=== PATIENT | female | born 1960 | race Caucasian/White ===

== ENCOUNTER → 2019-01-11 11:34 | Outpatient (CLI) | payer OTHER, SELFPAY ==
[2019-01-11 16:07] LABS: Absolute Lymphocyte Count 2.45 X10^3/uL (0.83-4.51); Absolute Neutrophil Count 3.5 X10^3/uL (2.0-7.7); Basophil# 0.08 X10^3/uL; Basophil% 1.2 % (0-1); Eosinophil# 0.33 X10^3/uL; Eosinophils% 4.8 % (0-5); Hematocrit 42.9 % (37-47); Hemoglobin 13.9 g/dL (12.0-15.0); Lymphocyte # 2.45 X10^3/ul (4.0); Lymphocyte % 35.3 % (19-41); Mean Corp Hgb Conc 32.4 g/dL (32-36); Mean Corpuscular Hgb 29.3 pg (27.0-32.0); Mean Corpuscular Volume 90.3 fL (81-99); Mean Platelet Vol. 10.3 fl (6.2-12.0); Monocyte% 8.6 % (0-10); NRBC Flagged by Analyzer 0 % (0-5); Neutrophil # 3.45 X10^3/uL (2.7-7.7); Neutrophil % 49.7 % (47-70); Platelet Count 270 K/mm3 (150-450); RBC Distribution Width CV 12.3 % (11.6-14.6); RBC Distribution Width SD 40.4 fl (35.1-43.9); Red Blood Count 4.75 M/mm3 (4.2-5.4); White Blood Count 6.9 K/mm3 (4.4-11.0)
[2019-01-11 16:44] LABS: Vitamin B12 415 pg/mL (211-911); Vitamin D,25 Hydroxy 15.9 ng/mL (29.95-100.01)
[2019-01-11 16:45] LABS: Anion Gap 7 (5-15); BUN 18 mg/dL (7-18); BUN/Creat Ratio 24.1 RATIO (10-20); Calcium,Total 8.9 mg/dL (8.5-10.1); Chloride 109 mmol/L (98-107); Creatinine, Serum 0.75 mg/dL (0.55-1.02); EST Glomerular Filtration Rate 85 mL/min (>60); Est Glom Filt Rate - Afr Amer 102 mL/min (>60); Glucose 95 mg/dL (74-106); Potassium 3.9 mmol/L (3.5-5.1); Sodium Level 140 mmol/L (136-145); T4 Free Direct 1.96 ng/dL (0.76-1.46); Thyroid Stim Hormone (TSH) 0.03 uIU/mL (0.358-3.74)
== END ==
LOC: BFHLAB 11:38
PROVIDERS: Family Provider Family Medicine; PCP Family Medicine; Visit Provider Family Medicine
DX: E03.9 Hypothyroidism, unspecified (principal); F32.1 Major depressive disorder, single episode, moderate; R53.83 Other fatigue
CPT/HCPCS: 36415; 80048; 82306; 82607; 84439; 84443; 85025

== ENCOUNTER → 2019-05-22 08:46 | Outpatient (CLI) | payer OTHER, SELFPAY ==
[2019-05-22 12:30] LABS: Vitamin D,25 Hydroxy 48.4 ng/mL
[2019-05-22 12:39] LABS: T4 Free Direct 0.78 ng/dL (0.76-1.46)
== END ==
PROVIDERS: Family Provider Family Medicine; PCP Family Medicine; Visit Provider Family Medicine
DX: E03.9 Hypothyroidism, unspecified (principal); E55.9 Vitamin D deficiency, unspecified
CPT/HCPCS: 36415; 82306; 84439; 84443

== ENCOUNTER → 2020-01-15 10:35 | Outpatient (CLI) | payer OTHER, SELFPAY ==
[2020-01-15 13:53] LABS: Thyroid Stim Hormone (TSH) 1.92 uIU/mL (0.358-3.74)
== END ==
PROVIDERS: PCP Family Medicine; Visit Provider Family Medicine
DX: E03.9 Hypothyroidism, unspecified (principal)
CPT/HCPCS: 36415; 84443

== ENCOUNTER → 2020-11-06 16:01 | Outpatient (CLI) | payer OTHER, SELFPAY ==
--- NOTE | 2020-11-06 16:05 | RAD_ITS ---
STUDY: X-RAY CHEST REASON FOR EXAM: Female, 60 years old. BACK PAIN TECHNIQUE: PA and lateral views of the chest. COMPARISON: None. FINDINGS: The lungs are clear and expanded. There is no demonstrated pleural abnormality. Normal size heart. Normal mediastinum and marcos. Normal visualized pulmonary arteries. Normal visualized aortic arch and descending thoracic aorta. Normal visualized thoracic spine. Normal visualized ribs, clavicles, and shoulders. There is no demonstrated abnormality of the visualized soft tissue structures of the upper abdomen. RAD/Chest PA and Lateral IMPRESSION: Normal x-ray examination of the chest. Electronically Signed: Karlo Márquez MD at 7:39 EDT Tel , Service support ,
== END ==
PROVIDERS: PCP Family Medicine; Referring Provider Family Medicine; Visit Provider Family Medicine
DX: M54.9 Dorsalgia, unspecified (principal)
CPT/HCPCS: 71046

== ENCOUNTER → 2020-11-20 07:41 | Outpatient (CLI) | payer OTHER, SELFPAY ==
--- NOTE | 2020-11-20 07:40 | BI_ITS ---
MAMMOGRAPHY - BILATERAL SCREENING REASON FOR EXAM: Female, 60 years old. Routine annual screening examination. PERTINENT HISTORY: Non-contributory. TECHNIQUE: Digital bilateral breast aaron (3D mammographic acquisition) in the CC and MLO projections. 2-D mediolateral oblique (MLO) and craniocaudad (CC) views of both breasts were obtained. CAD: Full Field Digital Mammography with Computer Added Detection was performed. COMPARISON: Comparison is made with prior examination dated 04/25/2012. FINDINGS: Breast Composition: The breasts are heterogeneously dense, which may obscure small masses. There are no dominant masses or suspicious calcifications. Stable 4.9 mm well-defined nodule in the deep upper lateral aspect of the left breast most likely representing a small lymph node. Stable small benign appearing bilateral axillary lymph nodes. No other significant abnormalities are identified. There has been no significant change since the prior study. BI/SCRN MAMM (CAD)W/AARON BILAT IMPRESSION: Stable bilateral screening mammogram. Yearly follow-up mammogram recommended. (A) ASSESSMENT CATEGORY: BIRADS Category 2: Benign. A letter regarding these results will be sent to the patient by the facility within 30 days. Approximately 10% of breast cancers are not detected by mammography. A normal mammogram should not delay biopsy of a clinically suspicious abnormality. [id number] Electronically Signed: Rahat Blanca MD at 9:12 EDT , Service support ,
== END ==
PROVIDERS: PCP Family Medicine; Referring Provider Family Medicine; Visit Provider Family Medicine
DX: Z12.31 Encounter for screening mammogram for malignant neoplasm of breast (principal)
CPT/HCPCS: 77063; 77067

== ENCOUNTER → 2022-09-13 | Outpatient (CLI) | payer OTHER, SELFPAY ==
[2022-09-13 12:36] LABS: Absolute Lymphocyte Count 2.04 X10^3/uL (0.83-4.51); Absolute Neutrophil Count 3.7 X10^3/uL (2.0-7.7); Basophil# 0.11 X10^3/uL; Basophil% 1.6 % (0-1); Eosinophil# 0.36 X10^3/uL; Eosinophils% 5.4 % (0-5); Hematocrit 40.9 % (37-47); Hemoglobin 13.3 g/dL (12.0-15.0); Lymphocyte # 2.04 X10^3/ul (0.83-4.51); Lymphocyte % 30.4 % (19-41); Mean Corp Hgb Conc 32.5 g/dL (32-36); Mean Corpuscular Hgb 29.9 pg (27.0-32.0); Mean Corpuscular Volume 91.9 fL (81-99); Mean Platelet Vol. 10.4 fl (6.2-12.0); Monocyte# 0.49 X10^3/uL; Monocyte% 7.3 % (0-10); NRBC Flagged by Analyzer 0 % (0-5); Neutrophil # 3.67 X10^3/uL (2.7-7.7); Neutrophil % 54.9 % (47-70); Platelet Count 254 K/mm3 (150-450); RBC Distribution Width CV 12.3 % (11.6-14.6); RBC Distribution Width SD 41.3 fl (35.1-43.9); Red Blood Count 4.45 M/mm3 (4.2-5.4); White Blood Count 6.7 K/mm3 (4.4-11.0)
[2022-09-13 12:56] LABS: AST(SGOT) 21 U/L (15-37); Alanine Aminotransfer ALT/SGPT 26 U/L (13-56); Albumin, Serum 3.8 g/dL (3.2-5.0); Alkaline Phosphatase 50 U/L (45-117); Anion Gap 5 (5-15); BUN 15 mg/dL (7-18); BUN/Creat Ratio 17.9 RATIO (10-20); Calcium,Total 9.2 mg/dL (8.5-10.1); Chloride 109 mmol/L (98-107); Cholesterol 217 mg/dL (200); Creatinine, Serum 0.84 mg/dL (0.55-1.02); EST Glomerular Filtration Rate 73 mL/min (>60); Est Glom Filt Rate - Afr Amer 89 mL/min (>60); Globulin 3.8 g/dL (2.2-4.2); Glucose 98 mg/dL (74-106); High Density Lipoprotein 57 mg/dL; Protein, Total 7.6 g/dL (6.4-8.2); Sodium Level 142 mmol/L (136-145); T4 Free Direct 1.48 ng/dL (0.76-1.46); Thyroid Stim Hormone (TSH) 2.86 uIU/mL (0.358-3.74); Triglycerides 90 mg/dL; Very Low Density Lipoprotein 18 mg/dL (5-40)
[2022-09-13 12:59] LABS: Vitamin B12 327 pg/mL (211-911); Vitamin D,25 Hydroxy 34.7 ng/mL
== END | disposition home or self-care (01) ==
LOC: BFHLAB 09:02
PROVIDERS: PCP Family Medicine; Visit Provider Nurse Practitioner Family
DX: Z00.00 Encounter for general adult medical examination without abnormal findings (principal); E78.5 Hyperlipidemia, unspecified; R53.83 Other fatigue
CPT/HCPCS: 36415; 80053; 80061; 82306; 82607; 84439; 84443; 85025

== ENCOUNTER 2023-03-21 17:17 | Emergency (ER) | payer OTHER, SELFPAY ==
[2023-03-21 17:18] VITALS: BP 143/76; PULSE 72; RESP 18; TEMP 36.2; O2SAT 98; BMI 31.0
--- NOTE | 2023-03-21 19:57 | CT_ITS ---
STUDY: CT BRAIN WITHOUT CONTRAST REASON FOR EXAM: Female, 63 years old. head injury RADIATION DOSAGE (If Supplied By Facility): CTDIvol = ( 44.99 ) mGy, DLP = ( 1228.58 ) mGycm TECHNIQUE: Transaxial CT imaging of the brain was performed without administration of intravenous contrast material. Individualized dose optimization techniques were used for this CT. COMPARISON: No relevant priors. FINDINGS: Normal soft tissue structures. Normal calvarium. There is mild cerebral atrophy with widening of the extra-axial spaces and ventricular dilatation. There are areas of decreased attenuation within the white matter tracts of the supratentorial brain, consistent with microvascular disease changes. There are small punctate calcifications of the basal ganglia which are seen in the aging brain as a normal variant. Normal brainstem. Normal cerebellum. There is no intracranial hemorrhage. There are no findings of an acute ischemic infarction. Normal visualized paranasal sinuses. CT/Brain/Head without Contrast IMPRESSION: Chronic involutional changes of the brain. Electronically Signed: Karlo Márquez MD at 20:50 EST ,
--- NOTE | 2023-03-21 19:57 | CT_ITS ---
STUDY: CT CERVICAL SPINE WITHOUT CONTRAST REASON FOR EXAM: Female, 63 years old. fall RADIATION DOSAGE (If Supplied By Facility): CTDIvol = ( 22.28 ) mGy, DLP = ( 1228.58 ) mGycm TECHNIQUE: High resolution transaxial imaging was performed without contrast material. Sagittal and coronal images were reconstructed. Individualized dose optimization techniques were used for this CT. COMPARISON: None FINDINGS: Normal craniovertebral junction. There are degenerative changes of the anterior atlantoaxial articulation. Normal odontoid process. There is reversal of the normal cervical lordosis. Normal vertebral bodies and posterior osseous elements. C2-3: Mild bilateral facet hypertrophy with ankylosis of facet joints produces mild bilateral neural foraminal stenosis. No central spinal stenosis. C3-4: Moderate right facet hypertrophy and right uncovertebral hypertrophy produces a moderate right neural foraminal stenosis. 2 mm of anterolisthesis of C3 on C4 with no central spinal stenosis. C4-5: Moderate bilateral facet hypertrophy produces mild bilateral neural foraminal stenosis. 2 mm of anterolisthesis of C4 on C5 with no central spinal stenosis. C5-6: Moderate bilateral facet hypertrophy produces mild bilateral neural foraminal stenosis. No central spinal stenosis. C6-7: Mild bilateral facet hypertrophy produces mild bilateral neural foraminal stenosis. No central spinal stenosis. C7-T1: Normal endplates. Normal disc height and morphology. Normal central canal and intervertebral neuroforamina. Normal visualized soft tissue structures. CT/Spine Cervical without Contras IMPRESSION: No acute fracture or subluxation. Degenerative disc disease with reversal normal lordotic curvature. Electronically Signed: Karlo Márquez MD at 20:56 EST ,
--- NOTE | 2023-03-21 20:02 | EX.ED.DYSGE1 ---
HPI <CHAD Sousa - Last Filed: 03/21/23 20:56> History of Present Illness Chief Complaint: Head Injury Narrative Narrative: Patient is a 63-year-old female with no significant medical history who presents to the emergency department after having a mechanical fall by tripping over her dog leash, landing on the concrete on the back of her head. Patient denies any LOC however states she was dazed. Per the , patient was awake however was slow to respond. Patient did lay for several minutes until she was able to get up. Patient's mostly complained of a headache, as well as left-sided rib pain. Patient denies any nausea or vomiting. Patient does have bleeding on the back of her scalp. PFSH <CHAD Sousa - Last Filed: 03/21/23 20:56> PFSH Allergy/AdvReac Type Severity Reaction Status Date / Time No Known Allergies Allergy Verified 03/21/23 17:18 ROS <CHAD Sousa - Last Filed: 03/21/23 20:56> ROS ED ROS Narrative Constitutional: Negative for fever, chills, weight loss, weakness Eyes: Negative for vision loss, vision change, double vision ENT: Negative for any sore throat, ear pain, congestion Cardiovascular: Negative for any chest pain, tightness, palpitations Respiratory: Negative for any cough, sputum production, hemoptysis, dyspnea, dyspnea on exertion, orthopnea Gastrointestinal: Negative for any abdominal pain, nausea, vomiting, diarrhea, constipation, blood in stool, blood in vomit : Negative for any urinary frequency, dysuria, retention, blood in urine Muscle skeletal: Negative for any myalgias, arthralgias, neck pain, back pain. Positive for left rib pain Neurological: Negative for any syncope, paresthesias, dizziness. Positive for headache Skin: Negative for any rashes, lumps, itching, abrasions, lacerations Psychiatric: Negative for any depression, anxiety, stress, suicidal ideation, homicidal ideation Hematologic: Negative for any easy bruising, excessive bruising, easy bleeding Allergies: Negative for any eczema, hives, rash EXAM <CHAD Sousa - Last Filed: 03/21/23 20:56> Physical Exam Narrative Exam Narrative: Vital signs reviewed. HEET: Head normocephalic atraumatic, TMs clear bilaterally. Posterior pharynx is clear, moist mucous membranes. Nares clear bilaterally. Pupils are equal round reactive to light, negative for any hemotympanum, septal hematoma. Patient does have edema to the occiput, 3 cm vertical laceration of the scalp. Neck: Supple with no lymphadenopathy or tenderness. No signs of meningismus. Cardiac: Regular rate and rhythm no murmurs gallops or rubs, equal peripheral pulses bilaterally. Respiratory: Lungs clear to auscultation bilaterally. Left-sided anterior, lateral chest wall tenderness. No crepitus noted. Abdomen: Soft, nontender, nondistended. No abdominal bruit or pulsatile masses. No hepatosplenomegaly Extremities: No peripheral edema, no signs of gross trauma or deformity. Active full range of motion of all extremities. Neuro: Cranial nerves II through XII intact, no focal neurological deficits. Skin: Clean dry and intact with no rash, purpura, petechiae, vesicles or pustules. Backs/flank: No CVA tenderness, no midline spinal tenderness, no deformity. Psych: Normal mood and affect. No SI, HI or acute psychosis. Const Vital Signs: 03/21/23 17:18 Temperature 97.2 F L Temperature Source Temporal Pulse Rate 72 Respiratory Rate 18 Blood Pressure 143/76 H Blood Pressure Mean 98 Pulse Ox 98 Oxygen Delivery Method Room Air Positive well nourished and well developed General Appearance ED: well developed <Dr. Mick Perkins MD - Last Filed: 03/21/23 21:29> Physical Exam Const Vital Signs: 03/21/23 17:18 Temperature 97.2 F L Temperature Source Temporal Pulse Rate 72 Respiratory Rate 18 Blood Pressure 143/76 H Blood Pressure Mean 98 Pulse Ox 98 Oxygen Delivery Method Room Air MDM <CHAD Sousa - Last Filed: 03/21/23 20:56> MDM Radiography Diagnostic Testing: Clinical Impression(s) from Imaging Studies Brain CT 03/21/23 19:57 IMPRESSION: Chronic involutional changes of the brain. Electronically Signed: Karlo Márquez MD at 20:50 EST , Cervical Spine CT 03/21/23 19:57 IMPRESSION: No acute fracture or subluxation. Degenerative disc disease with reversal normal lordotic curvature. Electronically Signed: Karlo Márquez MD at 20:56 EST Reading Location ID and State: [id number] / [employer] Tel , Service support , Ribs w/Chest X-Ray 03/21/23 20:16 IMPRESSION: RIBS: Normal x-ray examination of the ribs. CHEST: Normal x-ray examination of the chest. Electronically Signed: Karlo Márquez MD at 21:04 EST , Treatment and Re-Evaluation :: Patient appears to be in no obvious distress, vital signs are stable, presents to the emergency department with a mechanical fall, head injury. Differential diagnosis includes concussion, skull fracture, intracranial bleeding, concussion, cervical strain, left rib fracture. Secondary to the patient's HPI, the mechanical fall, the feeling of stunned, patient received a CT scan of the Brown, cervical spine, x-rays of the left rib series. Up-to-date on tetanus vaccination today. Patient will require payton to the occiput of the scalp lacerations that is 3 [address] in length. Patient CT scan of the brain, cervical spine were grossly unremarkable. Patient's chest x-ray as well as left rib x-ray was unremarkable. No acute fracture. Patient's wound was 3 cm in length, I was able to irrigate copiously with 200 cc normal saline. Patient did refuse her tetanus vaccination. I was able to place 6 payton, edges approximated nicely, patient will these removed in 7 days. Patient will take Tylenol, ibuprofen. She was given concussion education, reasons to return such as altered mental status, nausea, vomiting, fever or chills. Patient stable for discharge. <Dr. Mick Perkins MD - Last Filed: 03/21/23 21:29> [facility] Narrative Medical decision making narrative: I have personally performed a face to face assessment of the patient and have reviewed the ROSETTA Note. I performed a substantive portion of the visit including all aspects of the following. My bone findings include: History is 63-year-old female tripped over her dog leash hit the back of her head. Causing a laceration. No LOC. Mild neck and rib discomfort. Exam is [61-year-old female vital signs stable afebrile. HEENT exam pupils round reactive light. Extra motions are intact. Face atraumatic. She has a 2 inch laceration posterior scalp. It is already been stapled by my nurse practitioner. No significant hematoma. Proper hemostasis and wound closure is obtained. Neck paracervical soft tissue tenderness. Spine nontender. Trachea midline. Lungs clear to auscultation. Ribs mildly tender. No crepitance or subcu air. Heart regular rhythm rate about 70 no murmur. Abdomen soft nontender. Pelvic girdle intact. Moving all 4 extremities. Actually standing when I walked in the room. Neurologic exam normal. GCS of 15. Answering questions following commands.] Medical Decision Making [CAT scan head neck unremarkable. Chest x-ray chronic changes no obvious rib fractures. Tetanus updated. Scalp laceration repair.] Other additions or changes: [None] Radiography Diagnostic Testing: Clinical Impression(s) from Imaging Studies Brain CT 03/21/23 19:57 IMPRESSION: Chronic involutional changes of the brain. Electronically Signed: Karlo Márquez MD at 20:50 EST Reading Location ID and State: [id number] / [employer] Tel , Service support , Cervical Spine CT 03/21/23 19:57 IMPRESSION: No acute fracture or subluxation. Degenerative disc disease with reversal normal lordotic curvature. Electronically Signed: Karlo Márquez MD at 20:56 EST , Ribs w/Chest X-Ray 03/21/23 20:16 IMPRESSION: RIBS: Normal x-ray examination of the ribs. CHEST: Normal x-ray examination of the chest. Electronically Signed: Karlo Márquez MD at 21:04 EST , Discharge Plan Triage Chief Complaint: Head Injury ED Midlevel Provider: Reginald Garg ED Provider: Mick Perkins Dx/Rx/DC Orders Clinical Impression: Contusion of rib, Head injury, Fall, Laceration of scalp Instructions: After a Concussion, ED Laceration Scalp Stitches or Payton, ED Bruise, Rib Primary Care Provider: Dalton Araya Referrals: Dalton Araya MD [Primary Care Provider] - Activity Restrictions/Additional Instructions: You will need to use ibuprofen, Tylenol, perform gentle stretching. You have 6 payton to your scalp. These can be removed by your primary care physician or here in the next 7 days. You may take a shower just, decrease friction and touching the area. Disposition Disposition: Home, Self Care
--- NOTE | 2023-03-21 20:16 | RAD_ITS ---
STUDY: X-RAY - UNILATERAL RIBS ( LEFT ) WITH CHEST REASON FOR EXAM: Female, 63 years old. fall TECHNIQUE - RIBS: 4 view(s) of the ribs. TECHNIQUE - CHEST: Single PA view of the chest. COMPARISON: 11/06/2020 FINDINGS - RIBS: Normal visualized ribs without a demonstrated fracture. FINDINGS - CHEST: The lungs are clear and expanded. There is no demonstrated pleural abnormality. Normal size heart. Normal mediastinum and marcos. Normal visualized pulmonary arteries. Normal visualized aortic arch and descending thoracic aorta. Normal visualized thoracic spine. Normal visualized ribs, clavicles, and shoulders. There is no demonstrated abnormality of the visualized soft tissue structures of the upper abdomen. RAD/Ribs Uni Min 3V w/PA Chest IMPRESSION: RIBS: Normal x-ray examination of the ribs. CHEST: Normal x-ray examination of the chest. Electronically Signed: Karlo Márquez MD at 21:04 EST ,
[2023-03-21] MEDS: Lidocaine 1% /Epi 1:100 (20ml) 20 ML Vial 3 ML INFILT (20:24)
== END 2023-03-21 21:33 | disposition home or self-care (01) ==
PROVIDERS: Emergency Provider Emergency Medicine; PCP Family Medicine; Visit Provider Emergency Medicine
DX: S01.01XA Laceration without foreign body of scalp, initial encounter (principal); S20.212A Contusion of left front wall of thorax, initial encounter; W18.09XA Striking against other object with subsequent fall, initial encounter; Z28.21 Immunization not carried out because of patient refusal
CPT/HCPCS: 12002; 70450; 71101; 72125; 90715; 99283

== ENCOUNTER → 2023-09-15 | Outpatient (CLI) | payer OTHER, SELFPAY ==
[2023-09-15 15:15] LABS: Absolute Lymphocyte Count 2.71 X10^3/uL (0.83-4.51); Absolute Neutrophil Count 3.6 X10^3/uL (2.0-7.7); Basophil# 0.11 X10^3/uL; Basophil% 1.5 % (0-1); Eosinophil# 0.41 X10^3/uL; Eosinophils% 5.6 % (0-5); Hematocrit 40.5 % (37-47); Hemoglobin 13.1 g/dL (12.0-15.0); Lymphocyte # 2.71 X10^3/ul (0.83-4.51); Lymphocyte % 36.7 % (19-41); Mean Corp Hgb Conc 32.3 g/dL (32-36); Mean Corpuscular Hgb 29.8 pg (27.0-32.0); Mean Platelet Vol. 10.5 fl (6.2-12.0); Monocyte# 0.58 X10^3/uL; Monocyte% 7.9 % (0-10); NRBC Flagged by Analyzer 0 % (0-5); Neutrophil # 3.55 X10^3/uL (2.7-7.7); Platelet Count 261 K/mm3 (150-450); RBC Distribution Width CV 12.8 % (11.6-14.6); RBC Distribution Width SD 43.4 fl (35.1-43.9); White Blood Count 7.4 K/mm3 (4.4-11.0)
[2023-09-15 16:02] LABS: Vitamin B12 349 pg/mL (211-911); Vitamin D,25 Hydroxy 24.2 ng/mL
[2023-09-15 16:05] LABS: ALB/GLOB Ratio 1.1 RATIO (0.9-2.4); AST(SGOT) 33 U/L (15-37); Alanine Aminotransfer ALT/SGPT 35 U/L (13-56); Alkaline Phosphatase 49 U/L (45-117); Anion Gap 9 (5-15); BUN 16 mg/dL (7-18); BUN/Creat Ratio 19.2 RATIO (10-20); Calcium,Total 8.9 mg/dL (8.5-10.1); Chloride 107 mmol/L (98-107); Cholesterol 237 mg/dL (200); Creatinine, Serum 0.83 mg/dL (0.55-1.02); EST Glomerular Filtration Rate 74 mL/min (>60); Est Glom Filt Rate - Afr Amer 89 mL/min (>60); Globulin 3.7 g/dL (2.2-4.2); Glucose 81 mg/dL (74-106); High Density Lipoprotein 58 mg/dL; Potassium 3.7 mmol/L (3.5-5.1); Protein, Total 7.7 g/dL (6.4-8.2); Sodium Level 141 mmol/L (136-145); T4 Free Direct 1.55 ng/dL (0.76-1.46); Thyroid Stim Hormone (TSH) 3.93 uIU/mL (0.358-3.74); Triglycerides 81 mg/dL; Very Low Density Lipoprotein 16 mg/dL (5-40)
== END | disposition home or self-care (01) ==
LOC: MTLAB 11:33
PROVIDERS: PCP Nurse Practitioner Family; Referring Provider Nurse Practitioner Family; Visit Provider Nurse Practitioner Family
DX: Z00.01 Encounter for general adult medical examination with abnormal findings (principal); E03.9 Hypothyroidism, unspecified; E55.9 Vitamin D deficiency, unspecified; R53.83 Other fatigue
CPT/HCPCS: 36415; 80053; 80061; 82306; 82607; 84439; 84443; 85025